=== PATIENT | male | born 1950 ===

== ENCOUNTER → 2020-09-02 09:40 | Outpatient (BNVA) | payer OTHER, SELFPAY | PROVIDERS: PCP Family Medicine; Referring Provider Orthopaedic Surgery; Visit Provider Nurse Practitioner Adult Health | DX: G56.01 Carpal tunnel syndrome, right upper limb (principal); G25.0 Essential tremor; I95.9 Hypotension, unspecified; I10 Essential (primary) hypertension | CPT/HCPCS: 95908; 99204 ==